=== PATIENT | male | born 1965 | race Caucasian/White ===

== ENCOUNTER → 2016-04-01 | Outpatient (CLI) | payer BC ==
[2016-04-01 20:28] LABS: ANION GAP 9 MEQ/L (8-16); BLOOD UREA NITROGEN 14 MG/DL (7-18); CALCIUM LEVEL 9.2 MG/DL (8.5-10.1); CARBON DIOXIDE LEVEL 26 MEQ/L (21-32); CHLORIDE LEVEL 107 MEQ/L (98-107); CREATININE FOR GFR 1.11 MG/DL (0.70-1.30); GLOMERULAR FILTRATION RATE > 60.0 (>56); GLUCOSE, FASTING 159 MG/DL (70-105); POTASSIUM SERUM 4.3 MEQ/L (3.5-5.1); SODIUM LEVEL 142 MEQ/L (136-145)
== END ==
LOC: M WUC 16:37
PROVIDERS: ATTEND Physician Assistant Medical
DX: E11.9 Type 2 diabetes mellitus without complications (principal)

== ENCOUNTER → 2016-08-17 | Outpatient (CLI) | payer BC ==
[2016-08-17 14:11] LABS: MEAN CORPUSCULAR HEMOGLOBIN 30.7 pg (27.0-33.0); MEAN CORPUSCULAR VOLUME 90.4 fl (80.0-96.0); RED CELL DISTRIBUTION WIDTH 12.7 % (11.5-14.5); WHITE BLOOD COUNT 6.4 K/mm3 (4.0-10.0)
[2016-08-17 14:23] LABS: ALBUMIN 3.7 GM/DL (3.2-5.2); ANION GAP 8 MEQ/L (8-16); BLOOD UREA NITROGEN 14 MG/DL (7-18); CALCIUM LEVEL 8.6 MG/DL (8.5-10.1); CARBON DIOXIDE LEVEL 26 MEQ/L (21-32); CHLORIDE LEVEL 106 MEQ/L (98-107); CREATININE FOR GFR 0.99 MG/DL (0.70-1.30); GLOMERULAR FILTRATION RATE > 60.0 (>56); GLUCOSE, FASTING 153 MG/DL (70-105); PHOSPHORUS LEVEL 3.8 MG/DL (2.5-4.9); SODIUM LEVEL 140 MEQ/L (136-145)
[2016-08-17 14:26] LABS: LITHIUM LEVEL 0.64 MEQ/L (0.60-1.20)
[2016-08-17 14:27] LABS: ALT/SGPT 76 U/L (12-78); ANION GAP 8 MEQ/L (8-16); AST/SGOT 45 U/L (15-37); BLOOD UREA NITROGEN 14 MG/DL (7-18); CALCIUM LEVEL 8.8 MG/DL (8.5-10.1); CARBON DIOXIDE LEVEL 26 MEQ/L (21-32); CHLORIDE LEVEL 107 MEQ/L (98-107); CHOLESTEROL LEVEL 180 MG/DL (<200); CREATININE FOR GFR 0.98 MG/DL (0.70-1.30); GLOMERULAR FILTRATION RATE > 60.0 (>56); GLUCOSE, FASTING 154 MG/DL (70-105); SODIUM LEVEL 141 MEQ/L (136-145); TRIGLYCERIDES LEVEL 315 MG/DL (<150)
== END ==
LOC: M LAB 11:41
PROVIDERS: ATTEND Family Medicine
DX: I10 Essential (primary) hypertension (principal); E66.9 Obesity, unspecified; E03.9 Hypothyroidism, unspecified; F33.9 Major depressive disorder, recurrent, unspecified

== ENCOUNTER → 2016-08-17 | Outpatient (CLI) | payer BC | LOC: M LAB 11:37 | PROVIDERS: ATTEND Nurse Practitioner Psychiatric/Mental Health | DX: Z51.81 Encounter for therapeutic drug level monitoring (principal); Z79.899 Other long term (current) drug therapy ==

== ENCOUNTER → 2016-11-05 | Outpatient (REF) | payer BC | LOC: M LAB REF 12:00 | PROVIDERS: ATTEND Internal Medicine Gastroenterology | DX: R10.33 Periumbilical pain (principal); R13.10 Dysphagia, unspecified; K59.1 Functional diarrhea ==

== ENCOUNTER → 2017-11-08 | Outpatient (CLI) | payer BC ==
[2017-11-08 08:47] LABS: BASO # 0.1 10^3/uL (0.0-0.2); BASO % 1.1 % (0.0-1.0); EOS # 0.4 10^3/uL (0.0-0.50); EOS % 5.6 % (0.0-3.0); HEMATOCRIT 37.4 % (42.0-52.0); HEMOGLOBIN 12.3 g/dl (13.5-17.5); IMMATURE GRANULOCYTE % 0.3 % (0-3.0); LYMPH # 2.3 10^3/uL (1.5-4.5); LYMPH % 34.6 % (24.0-44.0); MEAN CORPUSCULAR HEMOGLOBIN 29.1 pg (27.0-33.0); MEAN CORPUSCULAR HGB CONC 32.9 g/dl (32.0-36.5); MEAN CORPUSCULAR VOLUME 88.6 fl (80.0-96.0); MONO # 0.7 10^3/uL (0.0-0.8); MONO % 10.8 % (0.0-5.0); NEUTROPHILS # 3.2 10^3/uL (1.8-7.7); NEUTROPHILS % 47.6 % (36.0-66.0); PLATELET COUNT, AUTOMATED 162 10^3/uL (150-450); RED BLOOD COUNT 4.22 10^6/uL (4.30-6.10); RED CELL DISTRIBUTION WIDTH 13.8 % (11.5-14.5); WHITE BLOOD COUNT 6.6 10^3/uL (4.0-10.0)
[2017-11-08 08:52] LABS: APPEARANCE, URINE CLEAR (CLEAR); BACTERIA, URINE AUTO NEGATIVE (NEGATIVE); BILIRUBIN, URINE AUTO NEGATIVE (NEGATIVE); BLOOD, URINE BLOOD NEGATIVE (NEGATIVE); COLOR, URINE YELLOW (YELLOW); GLUCOSE, URINE (UA) AUTO 3+ mg/dL (NEGATIVE); KETONE, URINE AUTO NEGATIVE (NEGATIVE); LEUKOCYTE ESTERASE, URINE AUTO NEGATIVE (NEGATIVE); NITRITE, URINE AUTO NEGATIVE (NEGATIVE); PROTEIN, URINE AUTO NEGATIVE (NEGATIVE); RBC, URINE AUTO 3 /HPF (0-3); SPECIFIC GRAVITY URINE AUTO 1.027 (1.002-1.035); SQUAMOUS EPITHELIAL CELL UR AU 0 /HPF (0-6); UROBILINOGEN, URINE AUTO 0.2 mg/dL (0.0-2.0); WBC, URINE AUTO 2 /HPF (0-3)
[2017-11-08 09:13] LABS: ESTIMATED AVERAGE GLUCOSE 174 MG/DL (60-110); HEMOGLOBIN A1c 7.7 %
[2017-11-08 09:25] LABS: ALBUMIN 3.8 GM/DL (3.2-5.2); ALKALINE PHOSPHATASE 53 U/L (45-117); ALT/SGPT 55 U/L (12-78); ANION GAP 10 MEQ/L (8-16); AST/SGOT 37 U/L (7-37); BILIRUBIN,TOTAL 1.4 MG/DL (0.2-1.0); BLOOD UREA NITROGEN 13 MG/DL (7-18); CALCIUM LEVEL 9.1 MG/DL (8.5-10.1); CARBON DIOXIDE LEVEL 23 MEQ/L (21-32); CHLORIDE LEVEL 106 MEQ/L (98-107); CHOLESTEROL LEVEL 161 MG/DL (<200); CHOLESTEROL RISK RATIO 4.025 (<5); CPK CREATINE PHOSPHOKINASE 78 U/L (39-308); CREATININE FOR GFR 1.11 MG/DL (0.70-1.30); GLOMERULAR FILTRATION RATE > 60.0 (>56); GLUCOSE, FASTING 118 MG/DL (70-100); HDL CHOLESTEROL 40 MG/DL (>40); LDL CHOLESTEROL 91 MG/DL (<100); NON-HDL-C 121 MG/DL; SODIUM LEVEL 139 MEQ/L (136-145); TOTAL PROTEIN 7.3 GM/DL (6.4-8.2); TRIGLYCERIDES LEVEL 150 MG/DL (<150)
[2017-11-08 10:14] LABS: MALB URINE SIEMENS 10.8 MG/L
[2017-11-08 12:18] LABS: ALBUMIN/GLOBULIN RATIO 0.92 (1.00-1.93)
[2017-11-08 20:33] LABS: MAU/CREAT RATIO 5.7 MCG/MG (0.0-30.0)
== END ==
LOC: M LAB 07:54
DX: E78.5 Hyperlipidemia, unspecified (principal); I10 Essential (primary) hypertension; E11.9 Type 2 diabetes mellitus without complications
CPT/HCPCS: 82550

== ENCOUNTER → 2018-01-28 | Outpatient (CLI) | payer BC, OTHER, SELFPAY ==
[2018-01-28 17:38] LABS: ALBUMIN 3.4 GM/DL (3.2-5.2); BILIRUBIN,DIRECT 0.2 MG/DL (0.0-0.2); BILIRUBIN,TOTAL 0.7 MG/DL (0.2-1.0); TOTAL PROTEIN 7.2 GM/DL (6.4-8.2)
== END ==
LOC: M WUC 15:49
PROVIDERS: ATTEND Family Medicine
DX: E78.5 Hyperlipidemia, unspecified (principal)

== ENCOUNTER 2018-04-29 11:42 | Emergency (ER) | payer OTHER ==
[~2018-04-29] VITALS: Ht 172.7 cm; Wt 100.0 kg
[2018-04-29] MEDS ORDERED: MORPHINE 4 MG/ML 1ML VIAL/SYRINGE (J2270) IV PRN (12:00)
[2018-04-29] MEDS ORDERED: NS 500 ML IV ONE (12:00)
[2018-04-29] MEDS ORDERED: ONDANSETRON 4MG/2ML VIAL (J2405) IV ONE (12:00)
[2018-04-29 12:23] LABS: BASO % 0.4 % (0.0-1.0); EOS # 0.4 10^3/uL (0.0-0.50); EOS % 3.7 % (0.0-3.0); HEMATOCRIT 39.1 % (42.0-52.0); HEMOGLOBIN 12.6 g/dl (13.5-17.5); LYMPH # 2.7 10^3/uL (1.5-4.5); MEAN CORPUSCULAR HEMOGLOBIN 28.4 pg (27.0-33.0); MEAN CORPUSCULAR HGB CONC 32.2 g/dl (32.0-36.5); MEAN CORPUSCULAR VOLUME 88.1 fl (80.0-96.0); MONO # 0.8 10^3/uL (0.0-0.8); MONO % 8.5 % (0.0-5.0); NEUTROPHILS # 5.4 10^3/uL (1.8-7.7); NEUTROPHILS % 58.2 % (36.0-66.0); PLATELET COUNT, AUTOMATED 171 10^3/uL (150-450); RED BLOOD COUNT 4.44 10^6/uL (4.30-6.10); WHITE BLOOD COUNT 9.3 10^3/uL (4.0-10.0)
[2018-04-29 12:54] LABS: ALBUMIN 3.6 GM/DL (3.2-5.2); ALT/SGPT 36 U/L (12-78); BILIRUBIN,DIRECT 0.3 MG/DL (0.0-0.2); BILIRUBIN,TOTAL 1.7 MG/DL (0.2-1.0); BLOOD UREA NITROGEN 13 MG/DL (7-18); CALCIUM LEVEL 8.8 MG/DL (8.5-10.1); CARBON DIOXIDE LEVEL 24 MEQ/L (21-32); CHLORIDE LEVEL 106 MEQ/L (98-107); CREATININE FOR GFR 1.05 MG/DL (0.70-1.30); GLOMERULAR FILTRATION RATE > 60.0 (>56); GLUCOSE, FASTING 190 MG/DL (70-100); LIPASE 298 U/L (73-393); POTASSIUM SERUM 4.1 MEQ/L (3.5-5.1); SODIUM LEVEL 138 MEQ/L (136-145); TOTAL PROTEIN 7.4 GM/DL (6.4-8.2)
[2018-04-29] MEDS ORDERED: ISOVUE-370 76% 100ML VIAL (Q9967) As Ordered ONE (12:56)
--- NOTE | 2018-04-29 13:30 | REP ---
Clinical: Right lower quadrant pain. Technique: Axial contrast enhanced images from the lung bases to the pubic symphysis using 100 ml Isovue 370 intravenous contrast material with coronal and sagittal re-formations. Findings: Lung bases are clear. Visualized heart and pericardium normal. Fatty infiltration to the liver suggested. Spleen, pancreas, bilateral adrenal glands and kidneys are normal. The patient is status post cholecystectomy. The enteric system is without obstruction or acute inflammatory process. The appendix is identified in the right lower quadrant and while the proximal appendix measures up to 10 mm diameter, no further significant changes are appreciated to suggest acute appendicitis. Pelvis demonstrates normal bladder and age appropriate prostate/seminal vesicles. No ascites. No free air. No adenopathy. Abdominal aorta and vasculature without aneurysm or dissection. Musculoskeletal structures are intact. Impression: 1. Mild prominence to the proximal appendix measuring [address] further definite CT evidence for acute appendicitis. However, close clinical observation may be warranted. 2. No further acute abdominopelvic pathology appreciated. Electronically Signed by Barry Sotomayor MD 04/29/2018 01:22 P
[2018-04-29] MEDS ORDERED: ONDA4TAB6 PO (13:55)
[2018-04-29] MEDS ORDERED: FLAG500T PO (13:55)
[2018-04-29] MEDS ORDERED: CIPR-249 PO (13:55)
[2018-04-29] MEDS ORDERED: metroNIDAZOLE (FLAGYL) 500 MG TAB PO ONE (14:00)
[2018-04-29] MEDS ORDERED: CIPROFLOXACIN 500 MG TAB PO ONE (14:00)
[2018-04-29 14:42] VITALS: BP 115/59
== END 2018-04-29 14:46 | disposition home or self-care (01) ==
LOC: M ED 11:42
DX: R10.11 Right upper quadrant pain (principal); R11.0 Nausea; E11.9 Type 2 diabetes mellitus without complications; I10 Essential (primary) hypertension; Z88.0 Allergy status to penicillin; Z88.2 Allergy status to sulfonamides
CPT/HCPCS: 74177; 80048; 80076; 83690; 85025; 96374; 96375; 99284; J2270; J2405; Q9967

== ENCOUNTER → 2018-10-10 | Outpatient (CLI) | payer OTHER ==
[~2018-10-10] MED LIST: CIPR-249 PO; FLAG500T PO; ONDA4TAB6 PO
[2018-10-10 20:54] LABS: BASO # 0.1 10^3/uL (0.0-0.2); BASO % 0.8 % (0.0-1.0); EOS # 0.3 10^3/uL (0.0-0.50); EOS % 3.4 % (0.0-3.0); HEMATOCRIT 40.6 % (42.0-52.0); HEMOGLOBIN 13.2 g/dl (13.5-17.5); LYMPH # 3.1 10^3/uL (1.5-4.5); LYMPH % 37.4 % (24.0-44.0); MEAN CORPUSCULAR HEMOGLOBIN 28.9 pg (27.0-33.0); MEAN CORPUSCULAR HGB CONC 32.5 g/dl (32.0-36.5); MONO % 11.8 % (0.0-5.0); NEUTROPHILS # 3.8 10^3/uL (1.8-7.7); NEUTROPHILS % 46.4 % (36.0-66.0); PLATELET COUNT, AUTOMATED 205 10^3/uL (150-450); RED BLOOD COUNT 4.56 10^6/uL (4.30-6.10); WHITE BLOOD COUNT 8.2 10^3/uL (4.0-10.0)
[2018-10-10 20:56] LABS: BLOOD UREA NITROGEN 15 MG/DL (7-18); C REACTIVE PROTEIN QUANTITATIV < 0.30 MG/DL (0.00-0.30); CALCIUM LEVEL 8.9 MG/DL (8.5-10.1); CARBON DIOXIDE LEVEL 24 MEQ/L (21-32); CHLORIDE LEVEL 110 MEQ/L (98-107); CREATININE FOR GFR 1.06 MG/DL (0.70-1.30); GLOMERULAR FILTRATION RATE > 60.0 (>56); GLUCOSE, FASTING 128 MG/DL (70-100); SODIUM LEVEL 143 MEQ/L (136-145); URIC ACID 4.4 MG/DL (3.5-7.2)
[2018-10-10 21:22] LABS: ERYTHROCYTE SEDIMENTATION RATE 7 mm/hr (0-20)
--- NOTE | 2018-10-11 09:49 | REP ---
RIGHT WRIST COMPLETE: 10/10/2018. Clinical history: Wrist pain for 1 day, no recent trauma. Findings: Four views are provided. Narrowing of the radiocarpal articulation with near [id number] appearance of the lunate on the radius. There is soft tissue calcific density on oblique view near the radial styloid and distal pole of the scaphoid. This may be a calcification or bursal recess. There is abnormal widening of the scapholunate joint in a lucency in the lunate representing a bone cyst. Bone is somewhat sclerotic around it. I do not see a fracture of the scaphoid or capitate. The multangular bones show some degenerative changes. There is no visible fracture of the triquetrum or hamate. Degenerative changes at the CMC joints are mild, greatest at the first CMC joint. No metacarpal fracture. There is some soft tissue swelling about the distal forearm and wrist. Impression: 1. There is widening of the scapholunate joint suggesting scapholunate ligament injury, this could be chronic or acute. Mild soft-tissue swelling but no visible acute fracture. 2. Soft tissue calcification adjacent to distal radial styloid and adjacent distal pole of the scaphoid could be calcification in a bursal recess. 3. No acute fracture evident on these images. I recommend orthopedic referral. The scapholunate joint widening warrants further investigation. Electronically Signed by Kirill Fleming MD 10/11/2018 11:14 A
== END ==
LOC: M WUC 17:18
PROVIDERS: ATTEND Physician Assistant
DX: M25.431 Effusion, right wrist (principal); M25.531 Pain in right wrist

== ENCOUNTER → 2019-04-21 | Outpatient (CLI) | payer OTHER ==
[2019-04-21 19:20] LABS: ALT/SGPT 56 U/L (12-78); BILIRUBIN,TOTAL 1.3 MG/DL (0.2-1.0); BLOOD UREA NITROGEN 17 MG/DL (7-18); CALCIUM LEVEL 9.1 MG/DL (8.5-10.1); CARBON DIOXIDE LEVEL 28 MEQ/L (21-32); CHLORIDE LEVEL 109 MEQ/L (98-107); CHOLESTEROL LEVEL 196 MG/DL (<200); CREATININE FOR GFR 1.03 MG/DL (0.70-1.30); GLOMERULAR FILTRATION RATE > 60.0 (>56); GLUCOSE, FASTING 122 MG/DL (70-100); HDL CHOLESTEROL 35 MG/DL (>40); LDL CHOLESTEROL 91 MG/DL (<100); NON-HDL-C 161 MG/DL; POTASSIUM SERUM 4.4 MEQ/L (3.5-5.1); SODIUM LEVEL 142 MEQ/L (136-145); TOTAL PROTEIN 7.8 GM/DL (6.4-8.2); TRIGLYCERIDES LEVEL 348 MG/DL (<150)
[2019-04-21 19:23] LABS: CREATININE, URINE 88.6 MG/DL; MALB URINE SIEMENS 8.3 MG/L; MAU/CREAT RATIO 9.3 MCG/MG (0.0-30.0)
== END ==
LOC: M WUC 17:04
PROVIDERS: ATTEND Nurse Practitioner Family
DX: E11.9 Type 2 diabetes mellitus without complications (principal); E06.3 Autoimmune thyroiditis; E78.00 Pure hypercholesterolemia, unspecified

== ENCOUNTER → 2019-11-14 | Outpatient (CLI) | payer OTHER ==
[2019-11-14 08:58] LABS: BLOOD UREA NITROGEN 12 MG/DL (7-18); CALCIUM LEVEL 8.8 MG/DL (8.5-10.1); CARBON DIOXIDE LEVEL 23 MEQ/L (21-32); CHLORIDE LEVEL 108 MEQ/L (98-107); CREATININE FOR GFR 1.04 MG/DL (0.70-1.30); GLOMERULAR FILTRATION RATE > 60.0 (>56); GLUCOSE, FASTING 171 MG/DL (70-100); POTASSIUM SERUM 4.2 MEQ/L (3.5-5.1); SODIUM LEVEL 140 MEQ/L (136-145)
== END ==
LOC: M LAB 07:51
PROVIDERS: ATTEND Nurse Practitioner Family
DX: E11.9 Type 2 diabetes mellitus without complications (principal)

== ENCOUNTER → 2020-03-29 | Outpatient (CLI) | payer OTHER | LOC: M LABSMTC 10:53 | PROVIDERS: ATTEND Pediatrics | DX: Z20.822 Contact with and (suspected) exposure to COVID-19 (principal) ==

== ENCOUNTER → 2020-05-09 | Outpatient (CLI) | payer OTHER ==
[2020-05-09 14:59] LABS: ALBUMIN 3.5 GM/DL (3.2-5.2); ALT/SGPT 32 U/L (12-78); BILIRUBIN,TOTAL 0.8 MG/DL (0.2-1.0); BLOOD UREA NITROGEN 15 MG/DL (7-18); CALCIUM LEVEL 8.9 MG/DL (8.5-10.1); CARBON DIOXIDE LEVEL 26 MEQ/L (21-32); CHLORIDE LEVEL 110 MEQ/L (98-107); CHOLESTEROL LEVEL 183 MG/DL (<200); CHOLESTEROL RISK RATIO 4.255 (<5); CREATININE FOR GFR 0.86 MG/DL (0.70-1.30); FREE T4 1.03 NG/DL (0.76-1.46); GLOMERULAR FILTRATION RATE > 60.0 (>56); GLUCOSE, FASTING 118 MG/DL (70-100); HDL CHOLESTEROL 43 MG/DL (>40); LDL CHOLESTEROL 114 MG/DL (<100); NON-HDL-C 140 MG/DL; POTASSIUM SERUM 4.7 MEQ/L (3.5-5.1); SODIUM LEVEL 141 MEQ/L (136-145); THYROID STIMULATING HORMONE 0.548 uIU/ML (0.358-3.740); TOTAL PROTEIN 6.5 GM/DL (6.4-8.2); TRIGLYCERIDES LEVEL 129 MG/DL (<150)
== END ==
LOC: M WUC 11:16
PROVIDERS: ATTEND Nurse Practitioner Family
DX: E78.00 Pure hypercholesterolemia, unspecified (principal); E06.3 Autoimmune thyroiditis

== ENCOUNTER → 2020-07-10 | Outpatient (REF) | LOC: M LABSMTC 13:55 | PROVIDERS: ATTEND Pediatrics | DX: Z20.822 Contact with and (suspected) exposure to COVID-19 (principal) ==

== ENCOUNTER → 2020-08-27 | Outpatient (CLI) | payer OTHER ==
[2020-08-27 09:17] LABS: HEMOGLOBIN 11.3 g/dl (13.5-17.5); MEAN CORPUSCULAR HEMOGLOBIN 25.9 pg (27.0-33.0); MEAN CORPUSCULAR HGB CONC 30.5 g/dl (32.0-36.5); MEAN CORPUSCULAR VOLUME 84.7 fl (80.0-96.0); PLATELET COUNT, AUTOMATED 186 10^3/uL (150-450); RED BLOOD COUNT 4.37 10^6/uL (4.30-6.10); WHITE BLOOD COUNT 5.9 10^3/uL (4.0-10.0)
[2020-08-27 09:43] LABS: FERRITIN 18 NG/ML (26-388); IRON (FE) 243 UG/DL (65-175); PERCENT SATURATION 48.9 % (19.7-50.0); TOTAL IRON BINDING CAPACITY 497 UG/DL (250-450)
[2020-08-27 09:48] LABS: ATYPICAL LYMPH 3 % (0-5); EOSINOPHILS 7 % (0-3); LYMPHOCYTES 44 % (16-44); MONOCYTES 4 % (0-5); NEUTROPHILS 42 % (28-66)
[2020-08-27 09:49] LABS: PLATELET ESTIMATE NORMAL (NORMAL)
[2020-08-27 09:50] LABS: VITAMIN B12 LEVEL > 2000 PG/ML
[2020-08-27 09:51] LABS: FOLATE 14.6 NG/ML
== END ==
LOC: M LAB 07:59
PROVIDERS: ATTEND Internal Medicine Gastroenterology
DX: R53.83 Other fatigue (principal); D64.9 Anemia, unspecified; K22.70 Barrett's esophagus without dysplasia; K59.1 Functional diarrhea; E56.9 Vitamin deficiency, unspecified

== ENCOUNTER 2020-11-03 13:10 | Emergency (ER) | payer OTHER ==
[~2020-11-03] VITALS: Ht 172.7 cm; Wt 92.9 kg
--- NOTE | 2020-11-03 13:50 | REP ---
INDICATION: trauma. COMPARISON: None. TECHNIQUE: Contiguous 5 mm thick axial projection images were obtained through the head. 2D coronal reconstructions were performed. FINDINGS: There is no evidence of acute intracranial hemorrhage or infarction. There are no abnormal intracranial masses or mass effects. 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 The skull base and calvarium are normal. There is a mucous retention cyst or polyp in the left maxillary sinus measuring 1.8 cm in diameter. There is nasal septal deviation to the left. The visualized intraorbital and extracranial contents are normal. IMPRESSION: 1. 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 2. There is no evidence of acute intracranial pathology. 3. There is a mucous retention cyst or polyp in the left maxillary sinus. <Electronically signed by Tayo Owens > 11/03/20 [id number]
--- NOTE | 2020-11-03 13:59 | REP ---
INDICATION: trauma. COMPARISON: None. TECHNIQUE: Contiguous 2 mm thick axial projection images were obtained of the cervical spine. 2D sagittal and coronal reconstructions were performed. FINDINGS: There is loss of the normal cervical lordosis and torticollis to the left. There is no evidence of fracture. There is no abnormal soft tissue swelling. There is mild arthritis of the atlantodental joint with a large subchondral cyst in the dens. There is degenerative disc disease, C4-5, C5-6 and C6-7 with narrowing of the intervertebral disc spaces and marginal osteophytes. There is a partially calcified disc protrusion C5-6. There is no significant facet arthropathy. There is no spondylolisthesis. There is a 17 mm in thickness mucous retention cyst or polyp in the left maxillary sinus. There is minimal basilar mucosal thickening of the right maxillary sinus. There is nasal septal deviation to the left. There is a 10 mm in diameter low-density nodule from the lower pole of the left thyroid lobe. The lung apices are clear. IMPRESSION: 1. No evidence of acute bony injury. 2. Degenerative disc disease with cervical spasm. 3. Other findings as noted. <Electronically signed by Tayo Owens > 11/03/20 [id number]
--- NOTE | 2020-11-03 14:36 | REP ---
INDICATION: trauma. COMPARISON: None. TECHNIQUE: Five views of the lumbar spine were performed. FINDINGS: There is degenerative disc disease, L4-5 and L5-S1 with narrowing of the disc spaces and marginal osteophytes. There are no compression fractures. There is no spondylolisthesis. The SI joints are normal. The perivertebral soft tissues are normal. IMPRESSION: 1. Degenerative disc disease L4-5 and L5-S1. 2. No evidence of acute injury. <Electronically signed by Tayo Owens > 11/03/20 [id number]
--- NOTE | 2020-11-03 14:37 | REP ---
INDICATION: trauma. COMPARISON: None. TECHNIQUE: Three-view lumbar spine series was performed. FINDINGS: There are no compression fractures. The intervertebral disc spaces of the thoracic spine are preserved. There is no evidence of scoliosis. The perivertebral soft tissues are unremarkable. IMPRESSION: Normal thoracic spine. <Electronically signed by Tayo Owens > 11/03/20 [id number]
[2020-11-03 14:57] VITALS: BP 170/76
== END 2020-11-03 15:00 | disposition home or self-care (01) ==
LOC: M ED 13:10
DX: S06.0X0A Concussion without loss of consciousness, initial encounter (principal); S16.1XXA Strain of muscle, fascia and tendon at neck level, initial encounter; S20.229A Contusion of unspecified back wall of thorax, initial encounter; W18.39XA Other fall on same level, initial encounter; Y92.018 Other place in single-family (private) house as the place of occurrence of the external cause; E11.9 Type 2 diabetes mellitus without complications; I10 Essential (primary) hypertension; E78.9 Disorder of lipoprotein metabolism, unspecified; F33.9 Major depressive disorder, recurrent, unspecified; F41.9 Anxiety disorder, unspecified; Z88.0 Allergy status to penicillin; Z88.1 Allergy status to other antibiotic agents; Z88.2 Allergy status to sulfonamides

== ENCOUNTER → 2020-12-29 | Outpatient (REF) | payer OTHER ==
[2020-12-29 19:43] LABS: MALB URINE SIEMENS 10.6 MG/L; MAU/CREAT RATIO 12.4 MCG/MG (0.0-30.0)
== END ==
LOC: M LAB REF 18:02
PROVIDERS: ATTEND Nurse Practitioner Family
DX: E11.9 Type 2 diabetes mellitus without complications (principal)

== ENCOUNTER → 2021-01-06 | Outpatient (REF) | LOC: M EMP 15:31 | PROVIDERS: ATTEND Family Medicine | DX: Z53.20 Procedure and treatment not carried out because of patient's decision for unspecified reasons (principal) ==

== ENCOUNTER 2021-01-26 07:05 | Outpatient (RCR) | END 2021-01-26 15:00 | disposition home or self-care (01) | LOC: M EMP 07:05 | PROVIDERS: ATTEND Pediatrics | DX: Z11.52 Encounter for screening for COVID-19 (principal) ==

== ENCOUNTER → 2021-02-26 | Outpatient (CLI) | payer OTHER ==
[2021-02-26 08:29] LABS: HEMATOCRIT 33.8 % (42.0-52.0); HEMOGLOBIN 11.4 g/dl (13.5-17.5); MEAN CORPUSCULAR HEMOGLOBIN 30.1 pg (27.0-33.0); MEAN CORPUSCULAR HGB CONC 33.7 g/dl (32.0-36.5); MEAN CORPUSCULAR VOLUME 89.2 fl (80.0-96.0); PLATELET COUNT, AUTOMATED 166 10^3/uL (150-450); RED BLOOD COUNT 3.79 10^6/uL (4.30-6.10)
[2021-02-26 09:00] LABS: ALBUMIN 3.5 GM/DL (3.2-5.2); ALT/SGPT 63 U/L (12-78); BLOOD UREA NITROGEN 16 MG/DL (7-18); CALCIUM LEVEL 8.6 MG/DL (8.5-10.1); CARBON DIOXIDE LEVEL 24 MEQ/L (21-32); CHLORIDE LEVEL 112 MEQ/L (98-107); CREATININE FOR GFR 0.97 MG/DL (0.70-1.30); GLOMERULAR FILTRATION RATE > 60.0 (>56); GLUCOSE, FASTING 239 MG/DL (70-100); IRON (FE) 58 UG/DL (65-175); PERCENT SATURATION 12.5 % (19.7-50.0); POTASSIUM SERUM 4.1 MEQ/L (3.5-5.1); SODIUM LEVEL 142 MEQ/L (136-145); TOTAL IRON BINDING CAPACITY 463 UG/DL (250-450); TOTAL PROTEIN 6.9 GM/DL (6.4-8.2)
--- NOTE | 2021-02-26 09:10 | REP ---
INDICATION: ABD PAIN COMPARISON: None. TECHNIQUE: Real time jain scale ultrasound examination using curved array transducer. FINDINGS: Liver is hyperechoic suggesting hepatocellular disease/hepatosteatosis. No focal hepatic lesions are identified. The main portal vein is mildly dilated at 17 mm which is nonspecific although raise the possibility for portal hypertension. Pancreas is incompletely evaluated due to interposed bowel gas. The gallbladder is surgically absent. Mild compensatory biliary ductal dilatation with common bile duct measuring 8.4 mm diameter. Right kidney is normal in reniform shape without hydronephrosis and measures 11.4 x 6.8 x 5.9 cm. No ascites in the visualized right upper quadrant. IMPRESSION: 1. Hepatosteatosis and/or hepatocellular disease with mildly dilated main portal vein raising the possibility of portal hypertension. <Electronically signed by Barry Sotomayor > 02/26/21 [id number]
[2021-02-26 15:16] LABS: TOTAL 25(OH) VITAMIN D 26.9 NG/ML (30.0-100.0)
[2021-02-26 15:35] LABS: VITAMIN B12 LEVEL 1411 PG/ML (247-911)
== END ==
LOC: M RAD 07:42
PROVIDERS: ATTEND Internal Medicine Gastroenterology
DX: K22.70 Barrett's esophagus without dysplasia (principal); K44.9 Diaphragmatic hernia without obstruction or gangrene; D64.9 Anemia, unspecified; K21.9 Gastro-esophageal reflux disease without esophagitis; K59.1 Functional diarrhea; I85.00 Esophageal varices without bleeding; K76.9 Liver disease, unspecified

== ENCOUNTER → 2021-03-02 | Outpatient (REF) | payer OTHER | LOC: M LAB REF 12:00 | PROVIDERS: ATTEND Internal Medicine Gastroenterology | DX: K22.70 Barrett's esophagus without dysplasia (principal); K44.9 Diaphragmatic hernia without obstruction or gangrene; K21.9 Gastro-esophageal reflux disease without esophagitis; I85.00 Esophageal varices without bleeding; D64.9 Anemia, unspecified; K59.1 Functional diarrhea ==

== ENCOUNTER → 2021-05-29 | Outpatient (CLI) | payer OTHER ==
[2021-05-29 16:17] LABS: INR 1.06; PROTHROMBIN TIME 14.2 SECONDS (12.7-14.5)
[2021-05-29 16:40] LABS: ALBUMIN 3.9 GM/DL (3.2-5.2); ALT/SGPT 48 U/L (12-78); BILIRUBIN,DIRECT 0.3 MG/DL (0.0-0.2); BILIRUBIN,TOTAL 1.4 MG/DL (0.2-1.0); FERRITIN 9 NG/ML (26-388); IRON (FE) 88 UG/DL (65-175); PERCENT SATURATION 17.1 % (19.7-50.0); TOTAL IRON BINDING CAPACITY 516 UG/DL (250-450); TOTAL PROTEIN 7.4 GM/DL (6.4-8.2)
[2021-05-29 16:52] LABS: HEPATITIS B SURFACE ANTIGEN NEGATIVE (NEGATIVE)
[2021-05-29 17:20] LABS: HEPATITIS C VIRUS ABY INDEX 0.2 INDEX (<0.8)
[2021-05-29 17:21] LABS: HEPATITIS B CORE ANTIBODY IGM NEGATIVE (NEGATIVE)
[2021-06-01 19:11] LABS: ALPHA 1 ANTITRYPSIN 125 mg/dL (101-187); ANTINUCLEAR ANTIBODIES DIRECT Negative (Negative); ENDOMYSIAL ABY IgA Negative (Negative); HCG SERUM TUMOR MARKER QUANT < 1 mIU/mL (0-3); HEPATITIS A IgG TOTAL Negative (Negative); LIVER-KIDNEY MICROSOMAL ABY <20.1 Units (0.0-20.0); TISSUE TRANSGLUTAMINASE IgA <2 U/mL (0-3)
== END ==
LOC: M LAB 14:27
PROVIDERS: ATTEND Internal Medicine Gastroenterology
DX: R10.84 Generalized abdominal pain (principal); K76.0 Fatty (change of) liver, not elsewhere classified; K76.6 Portal hypertension

== ENCOUNTER → 2021-05-29 | Outpatient (CLI) | payer OTHER ==
[2021-05-29 16:46] LABS: ALT/SGPT 49 U/L (12-78); BILIRUBIN,TOTAL 1.4 MG/DL (0.2-1.0); BLOOD UREA NITROGEN 10 MG/DL (7-18); CARBON DIOXIDE LEVEL 26 MEQ/L (21-32); CHLORIDE LEVEL 110 MEQ/L (98-107); CHOLESTEROL LEVEL 195 MG/DL (<200); CHOLESTEROL RISK RATIO 4.431 (<5); CREATININE FOR GFR 0.82 MG/DL (0.70-1.30); FREE T4 1.03 NG/DL (0.76-1.46); GLOMERULAR FILTRATION RATE > 60.0 (>56); GLUCOSE, FASTING 142 MG/DL (70-100); HDL CHOLESTEROL 44 MG/DL (>40); LDL CHOLESTEROL 125 MG/DL (<100); NON-HDL-C 151 MG/DL; SODIUM LEVEL 141 MEQ/L (136-145); TOTAL PROTEIN 7.4 GM/DL (6.4-8.2); TRIGLYCERIDES LEVEL 130 MG/DL (<150)
== END ==
LOC: M LAB 14:22
PROVIDERS: ATTEND Nurse Practitioner Family
DX: E06.3 Autoimmune thyroiditis (principal); E78.00 Pure hypercholesterolemia, unspecified

== ENCOUNTER → 2021-05-29 | Outpatient (CLI) | payer OTHER ==
[2021-05-29 16:41] LABS: ALBUMIN 3.9 GM/DL (3.2-5.2); BLOOD UREA NITROGEN 9 MG/DL (7-18); CALCIUM LEVEL 9.2 MG/DL (8.5-10.1); CARBON DIOXIDE LEVEL 28 MEQ/L (21-32); CHLORIDE LEVEL 112 MEQ/L (98-107); CREATININE FOR GFR 0.87 MG/DL (0.70-1.30); FREE THYROXINE INDEX 3.1 % (1.4-3.8); GLOMERULAR FILTRATION RATE > 60.0 (>56); GLUCOSE, FASTING 151 MG/DL (70-100); PHOSPHORUS LEVEL 3.7 MG/DL (2.5-4.9); POTASSIUM SERUM 4.1 MEQ/L (3.5-5.1); SODIUM LEVEL 144 MEQ/L (136-145); T UPTAKE 31 % (33-40); THYROXINE (T4) 9.9 UG/DL (4.5-12.0)
== END ==
LOC: M LAB 14:20
PROVIDERS: ATTEND Nurse Practitioner Psychiatric/Mental Health
DX: F31.9 Bipolar disorder, unspecified (principal); F41.1 Generalized anxiety disorder

== ENCOUNTER → 2021-05-29 | Outpatient (CLI) | payer OTHER ==
[2021-05-29 16:41] LABS: FREE THYROXINE INDEX 3.2 % (1.4-3.8); RHEUMATOID FACTOR QUANT < 10.0 IU/ML (<15.0); T UPTAKE 33 % (33-40); THYROXINE (T4) 9.6 UG/DL (4.5-12.0); TOTAL PROTEIN 7.2 GM/DL (6.4-8.2)
[2021-05-29 16:42] LABS: VITAMIN B12 LEVEL 1334 PG/ML
[2021-05-29 16:43] LABS: FOLATE 20.2 NG/ML
[2021-05-29 17:42] LABS: HEMOGLOBIN A1c 8.1 %
== END ==
LOC: M LAB 14:25
PROVIDERS: ATTEND Psychiatry & Neurology Neurology
DX: E11.9 Type 2 diabetes mellitus without complications (principal); Z79.899 Other long term (current) drug therapy

== ENCOUNTER 2021-10-29 19:08 | Emergency (ER) | payer OTHER ==
[~2021-10-29] VITALS: Ht 172.7 cm; Wt 95.5 kg
[2021-10-29 20:16] LABS: HEMATOCRIT 36.5 % (42.0-52.0); HEMOGLOBIN 12.7 g/dl (13.5-17.5); MEAN CORPUSCULAR HEMOGLOBIN 32.1 pg (27.0-33.0); MEAN CORPUSCULAR HGB CONC 34.8 g/dl (32.0-36.5); MEAN CORPUSCULAR VOLUME 92.2 fl (80.0-96.0); PLATELET COUNT, AUTOMATED 179 10^3/uL (150-450); RED BLOOD COUNT 3.96 10^6/uL (4.30-6.10); WHITE BLOOD COUNT 5.7 10^3/uL (4.0-10.0)
[2021-10-29 20:26] LABS: AMPHETAMINES LEVEL URINE NEGATIVE (NEGATIVE); BARBITURATES URINE NEGATIVE (NEGATIVE); BENZODIAZEPINES URINE NEGATIVE (NEGATIVE); CANNABINOIDS URINE NEGATIVE (NEGATIVE); COCAINE METABOLITE URINE NEGATIVE (NEGATIVE); METHADONE URINE NEGATIVE (NEGATIVE); OPIATES URINE NEGATIVE (NEGATIVE); PHENCYCLIDINE URINE NEGATIVE (NEGATIVE)
[2021-10-29 20:48] LABS: RSV AMPLIFICATION NEGATIVE (NEGATIVE)
[2021-10-29 20:53] LABS: ACETAMINOPHEN LEVEL < 2.0 UG/ML (10.0-30.0); ALBUMIN 3.6 GM/DL (3.2-5.2); ALT/SGPT 45 U/L (12-78); BILIRUBIN,DIRECT 0.3 MG/DL (0.0-0.2); BILIRUBIN,TOTAL 1.3 MG/DL (0.2-1.0); BLOOD UREA NITROGEN 10 MG/DL (7-18); CALCIUM LEVEL 9.7 MG/DL (8.5-10.1); CARBON DIOXIDE LEVEL 25 MEQ/L (21-32); CHLORIDE LEVEL 110 MEQ/L (98-107); CREATININE FOR GFR 0.95 MG/DL (0.70-1.30); ETHYL ALCOHOL (ETHANOL) 0.004 % (0.000-0.010); GLOMERULAR FILTRATION RATE > 60.0 (>56); GLUCOSE, FASTING 118 MG/DL (70-100); POTASSIUM SERUM 3.9 MEQ/L (3.5-5.1); SALICYLATE LEVEL < 1.7 MG/DL (5.0-30.0); SODIUM LEVEL 142 MEQ/L (136-145); TOTAL PROTEIN 7.1 GM/DL (6.4-8.2)
[2021-10-29] MEDS ORDERED: METF-838 PO (21:39)
[2021-10-29] MEDS ORDERED: ALOG25TA PO (21:39)
[2021-10-29] MEDS ORDERED: ARIP1TAB6 PO (21:39)
[2021-10-29] MEDS ORDERED: REPA1TAB6 PO (21:41)
[2021-10-29] MEDS ORDERED: LITH300C PO (21:56)
[2021-10-29] MEDS ORDERED: NALT50TA4 PO (21:56)
[2021-10-29] MEDS ORDERED: KP F1200 PO (21:56)
[2021-10-29] MEDS ORDERED: BUSP10TA PO (21:56)
[2021-10-29] MEDS ORDERED: FLUO20CA22 PO (21:56)
[2021-10-29] MEDS ORDERED: OMEP40CA4 PO (21:56)
[2021-10-29] MEDS ORDERED: LEVO50TA5 PO (21:56)
[2021-10-29 22:20] LABS: LITHIUM LEVEL 0.82 MEQ/L (0.60-1.20)
[2021-10-30] MEDS ORDERED: LITH300T2 PO (00:18)
[2021-10-30] MEDS ORDERED: BUSP10TA PO (00:18)
[2021-10-30] MEDS ORDERED: FLUO-96 PO (00:18)
[2021-10-30] MEDS ORDERED: LITH300C PO (00:18)
[2021-10-30] MEDS ORDERED: SYNT150T PO (00:18)
[2021-10-30] MEDS ORDERED: FISH1000 PO (00:18)
[2021-10-30] MEDS ORDERED: METF-838 PO (00:18)
[2021-10-30] MEDS ORDERED: REPA1TAB6 PO (00:21)
[2021-10-30] MEDS ORDERED: FERR1TAB8 PO (00:21)
[2021-10-30] MEDS ORDERED: MAGN400T2 PO (00:21)
[2021-10-30] MEDS ORDERED: C 50TAB PO (00:21)
[2021-10-30] MEDS ORDERED: LOSA50TA28 PO (00:21)
[2021-10-30] MEDS ORDERED: OMEP40CA5 PO (00:21)
[2021-10-30] MEDS ORDERED: NALT50TA4 PO (00:21)
[2021-10-30] MEDS ORDERED: HOME MED LIST COMPLETE! XX SCH (00:25)
[2021-10-30] MEDS ORDERED: metFORMIN XR 500MG TAB *GLUCOPHAGE XR PO SCH (09:00)
[2021-10-30] MEDS ORDERED: OMEGA-3 1000MG CAPSULE PO SCH (09:00)
[2021-10-30] MEDS ORDERED: ASCORBIC ACID 500 MG TAB PO SCH (09:00)
[2021-10-30] MEDS ORDERED: FERROUS SULFATE 325MG TAB PO SCH (09:00)
[2021-10-30] MEDS ORDERED: busPIRone 10 MG TAB PO ONE (09:00)
[2021-10-30] MEDS ORDERED: busPIRone 10 MG TAB PO SCH (09:00)
[2021-10-30] MEDS ORDERED: MAGNESIUM OXIDE 400MG TAB (MAG-OX) PO ONE (10:00)
[2021-10-30] MEDS ORDERED: metFORMIN (GLUCOPHAGE) 1000MG TABLET PO ONE (10:00)
[2021-10-30] MEDS ORDERED: LOSARTAN 50MG TABLET PO ONE (10:00)
[2021-10-30] MEDS ORDERED: FLUoxetine 20MG CAP PO ONE (10:00)
[2021-10-30] MEDS ORDERED: LEVOTHYROXINE 150MCG TABLET (0.15MG) PO SCH (10:00)
[2021-10-30] MEDS ORDERED: OMEPRAZOLE 20MG CAP PO ONE (10:00)
[2021-10-30 13:05] VITALS: BP 166/77
[2021-10-30 17:28] VITALS: BP 157/91
== END 2021-10-30 17:31 ==
LOC: M ED 19:08
DX: R45.851 Suicidal ideations (principal); E11.9 Type 2 diabetes mellitus without complications; I10 Essential (primary) hypertension; F31.9 Bipolar disorder, unspecified; F32.A Depression, unspecified; F41.9 Anxiety disorder, unspecified; Z88.0 Allergy status to penicillin; Z88.1 Allergy status to other antibiotic agents; Z88.2 Allergy status to sulfonamides; Z95.0 Presence of cardiac pacemaker; Z79.899 Other long term (current) drug therapy; Z79.890 Hormone replacement therapy; Z79.84 Long term (current) use of oral hypoglycemic drugs

== ENCOUNTER → 2022-06-29 | Outpatient (CLI) | payer OTHER ==
[~2022-06-29] MED LIST changes: +ALOG25TA PO; +ARIP1TAB6 PO; +BUSP10TA PO; +C 50TAB PO; +FERR1TAB8 PO; +FISH1000 PO; +FLUO-96 PO; +FLUO20CA22 PO; +KP F1200 PO; +LEVO50TA5 PO; +LITH300C PO; +LITH300T2 PO; +LOSA50TA28 PO; +MAGN400T2 PO; +METF-838 PO; +NALT50TA4 PO; +OMEP40CA4 PO; +OMEP40CA5 PO; +REPA1TAB6 PO; +SYNT150T PO
== END ==
LOC: M WUC 15:11
PROVIDERS: ATTEND Nurse Practitioner Family
DX: S20.212A Contusion of left front wall of thorax, initial encounter (principal); X58.XXXA Exposure to other specified factors, initial encounter; Y92.9 Unspecified place or not applicable; Y93.9 Activity, unspecified; Y99.9 Unspecified external cause status

== ENCOUNTER → 2022-09-02 | Outpatient (CLI) | payer OTHER | LOC: M RAD 08:51 | PROVIDERS: ATTEND Physician Assistant | DX: R19.00 Intra-abdominal and pelvic swelling, mass and lump, unspecified site (principal) ==

== ENCOUNTER → 2023-09-14 | Outpatient (REF) | payer MEDICARE ==
[~2023-09-14] MED LIST changes: +FLUO-365 PO; -FLUO20CA22 PO; +ONDA-282 PO; -ONDA4TAB6 PO
== END ==
LOC: M WUC 19:37
PROVIDERS: ATTEND Nurse Practitioner Family
DX: R30.0 Dysuria (principal)

== ENCOUNTER → 2024-01-23 | Outpatient (CLI) | payer MEDICARE ==
[~2024-01-23] MED LIST changes: +AMLO1TAB24; +JANU100T PO; +OLAN5ZYD; +REXU1TAB2 PO; +ZOLO100T
[2024-01-23 10:57] LABS: BASO % 1.1 % (0.0-1.0); EOS # 0.2 10^3/uL (0.0-0.5); HEMATOCRIT 35.4 % (42.0-52.0); HEMOGLOBIN 11.8 g/dl (13.5-17.5); LYMPH # 1.3 10^3/uL (1.5-5.0); LYMPH % 34.1 % (24.0-44.0); MEAN CORPUSCULAR HEMOGLOBIN 31.6 pg (27.0-33.0); MEAN CORPUSCULAR HGB CONC 33.3 g/dl (32.0-36.5); MEAN CORPUSCULAR VOLUME 94.9 fl (80.0-96.0); MONO # 0.5 10^3/uL (0.0-0.8); MONO % 11.9 % (2.0-8.0); NEUTROPHILS # 1.8 10^3/uL (1.5-8.5); NEUTROPHILS % 48.6 % (36.0-66.0); PLATELET COUNT, AUTOMATED 140 10^3/uL (150-450); RED BLOOD COUNT 3.73 10^6/uL (4.30-6.10); WHITE BLOOD COUNT 3.8 10^3/uL (4.0-10.0)
[2024-01-23 11:06] LABS: ALBUMIN 3.5 G/DL (3.2-5.2); ALKALINE PHOSPHATASE 58 U/L (40-129); ALT/SGPT 25 U/L (7.0-40); AST/SGOT 22 U/L (<34); BILIRUBIN,TOTAL 0.9 MG/DL (0.3-1.2); BLOOD UREA NITROGEN 16 MG/DL (9-23); CALCIUM LEVEL 9.1 MG/DL (8.3-10.6); CARBON DIOXIDE LEVEL 25 MMOL/L (20-31); CHLORIDE LEVEL 108 MMOL/L (98-107); CREATININE FOR GFR 0.68 MG/DL (0.70-1.30); GLOMERULAR FILTRATION RATE > 60.0 (>49); GLUCOSE, FASTING 300 MG/DL (74-106); POTASSIUM SERUM 4.2 MMOL/L (3.5-5.1); SODIUM LEVEL 140 MMOL/L (136-145); TOTAL PROTEIN 6.7 G/DL (5.7-8.2)
== END ==
LOC: M WUC 08:07
PROVIDERS: ATTEND Specialist
DX: D64.9 Anemia, unspecified (principal); D69.6 Thrombocytopenia, unspecified

== ENCOUNTER → 2024-02-15 | Outpatient (CLI) | payer MEDICARE ==
[2024-02-15 13:05] LABS: CREATININE, URINE 33.4 MG/DL; MALB URINE SIEMENS < 3.0 MG/L
[2024-02-15 13:10] LABS: ALBUMIN 3.5 G/DL (3.2-5.2); ALKALINE PHOSPHATASE 66 U/L (40-129); ALT/SGPT 40 U/L (7.0-40); AST/SGOT 31 U/L (<34); BILIRUBIN,TOTAL 0.8 MG/DL (0.3-1.2); BLOOD UREA NITROGEN 15 MG/DL (9-23); CALCIUM LEVEL 9.4 MG/DL (8.3-10.6); CARBON DIOXIDE LEVEL 26 MMOL/L (20-31); CHLORIDE LEVEL 109 MMOL/L (98-107); CHOLESTEROL LEVEL 182 MG/DL (<200); CHOLESTEROL RISK RATIO 3.73 (<5); CREATININE FOR GFR 0.64 MG/DL (0.70-1.30); FREE T4 1.08 NG/DL (0.89-1.76); GLOMERULAR FILTRATION RATE > 60.0 (>49); GLUCOSE, FASTING 179 MG/DL (74-106); HDL CHOLESTEROL 48.7 MG/DL (>40); LDL CHOLESTEROL 104.9 MG/DL (<100); NON-HDL-C 133.3 MG/DL; POTASSIUM SERUM 4.4 MMOL/L (3.5-5.1); SODIUM LEVEL 140 MMOL/L (136-145); THYROID STIMULATING HORMONE 5.479 uIU/ML (0.55-4.78); TOTAL PROTEIN 7.2 G/DL (5.7-8.2); TRIGLYCERIDES LEVEL 142 MG/DL (<150)
== END ==
LOC: M WUC 09:18
PROVIDERS: ATTEND Nurse Practitioner Family
DX: E06.3 Autoimmune thyroiditis (principal); E78.00 Pure hypercholesterolemia, unspecified; E11.9 Type 2 diabetes mellitus without complications

== ENCOUNTER → 2024-05-01 | Outpatient (CLI) | payer MEDICARE ==
[~2024-05-01] MED LIST changes: +LIDOCAINE 1% MDV 20ML VIAL As Ordered ONE
[2024-05-01 12:04] VITALS: TEMP 98.2
[2024-05-01 12:27] LABS: BASO % 0.8 % (0.0-1.0); EOS # 0.1 10^3/uL (0.0-0.5); EOS % 3.8 % (0.0-3.0); HEMATOCRIT 36.1 % (42.0-52.0); HEMOGLOBIN 11.9 g/dl (13.5-17.5); LYMPH # 1.4 10^3/uL (1.5-5.0); LYMPH % 37.4 % (24.0-44.0); MEAN CORPUSCULAR HEMOGLOBIN 30.3 pg (27.0-33.0); MEAN CORPUSCULAR VOLUME 91.9 fl (80.0-96.0); MONO # 0.4 10^3/uL (0.0-0.8); MONO % 11.4 % (2.0-8.0); NEUTROPHILS # 1.7 10^3/uL (1.5-8.5); NEUTROPHILS % 46.3 % (36.0-66.0); PLATELET COUNT, AUTOMATED 154 10^3/uL (150-450); RED BLOOD COUNT 3.93 10^6/uL (4.30-6.10); WHITE BLOOD COUNT 3.7 10^3/uL (4.0-10.0)
[2024-05-01 12:44] VITALS: BP 147/76; O2SAT 96
== END ==
LOC: M IRPRO 11:47
PROVIDERS: ATTEND Internal Medicine Hematology & Oncology
DX: D61.818 Other pancytopenia (principal)

== ENCOUNTER → 2024-11-05 | Outpatient (CLI) | payer MEDICARE, OTHER ==
[~2024-11-05] MED LIST changes: -LIDOCAINE 1% MDV 20ML VIAL As Ordered ONE
[2024-11-05 12:43] LABS: BASO # 0.0 10^3/uL (0.0-0.2); BASO % 0.8 % (0.0-1.0); EOS # 0.1 10^3/uL (0.0-0.5); EOS % 3.0 % (0.0-3.0); LYMPH # 1.1 10^3/uL (1.5-5.0); LYMPH % 27.6 % (24.0-44.0); MONO # 0.4 10^3/uL (0.0-0.8); MONO % 9.4 % (2.0-8.0); NEUTROPHILS # 2.3 10^3/uL (1.5-8.5); NEUTROPHILS % 58.9 % (36.0-66.0); PLATELET COUNT, AUTOMATED 128 10^3/uL (150-450)
[2024-11-05 13:14] LABS: ALT/SGPT 24 U/L (7.0-40); AST/SGOT 22 U/L (<34); CALCIUM LEVEL 9.1 MG/DL (8.3-10.6); CARBON DIOXIDE LEVEL 24 MMOL/L (20-31); CHLORIDE LEVEL 107 MMOL/L (98-107); CREATININE FOR GFR 0.74 MG/DL (0.70-1.30); GLOMERULAR FILTRATION RATE > 90.0 (>49); POTASSIUM SERUM 4.3 MMOL/L (3.5-5.1); SODIUM LEVEL 140 MMOL/L (136-145)
[2024-11-05 13:16] LABS: TOTAL 25(OH) VITAMIN D 22.2 NG/ML (20.0-100.0)
== END ==
LOC: M LAB 11:29
PROVIDERS: ATTEND Specialist
DX: D61.818 Other pancytopenia (principal); Z79.899 Other long term (current) drug therapy

== ENCOUNTER → 2024-11-06 | Outpatient (CLI) | payer MEDICARE, OTHER ==
[2024-11-06 12:19] LABS: APPEARANCE, URINE CLEAR (CLEAR); BACTERIA, URINE AUTO NEGATIVE (NEGATIVE); BILIRUBIN, URINE AUTO NEGATIVE (NEGATIVE); BLOOD, URINE BLOOD NEGATIVE (NEGATIVE); GLUCOSE, URINE (UA) AUTO NEGATIVE (NEGATIVE); KETONE, URINE AUTO NEGATIVE (NEGATIVE); LEUKOCYTE ESTERASE, URINE AUTO NEGATIVE (NEGATIVE); MUCUS, URINE SMALL (NEGATIVE); NITRITE, URINE AUTO NEGATIVE (NEGATIVE); PROTEIN, URINE AUTO NEGATIVE (NEGATIVE); RBC, URINE AUTO 0 /HPF (0-3); SPECIFIC GRAVITY URINE AUTO 1.015 (1.002-1.035); SQUAMOUS EPITHELIAL CELL UR AU 1 /HPF (0-6); UROBILINOGEN, URINE AUTO 0.2 mg/dL (0.0-2.0); WBC, URINE AUTO 0 /HPF (0-3)
[2024-11-06 12:32] LABS: CHOLESTEROL LEVEL 167.0 MG/DL (<200); CHOLESTEROL RISK RATIO 3.92 (<5); LDL CHOLESTEROL 89.1 MG/DL (<100); NON-HDL-C 124.5 MG/DL; PROSTATIC SPECIFIC AG MONITOR 0.17 NG/ML (< 4.00); TRIGLYCERIDES LEVEL 177.0 MG/DL (<150)
[2024-11-06 12:35] LABS: TOTAL 25(OH) VITAMIN D 23.4 NG/ML (20.0-100.0)
== END ==
LOC: M WUC 09:58
PROVIDERS: ATTEND Physician Assistant
DX: E78.5 Hyperlipidemia, unspecified (principal); E11.9 Type 2 diabetes mellitus without complications; E03.9 Hypothyroidism, unspecified; R35.1 Nocturia; E55.9 Vitamin D deficiency, unspecified; I10 Essential (primary) hypertension

== ENCOUNTER → 2024-11-06 | Outpatient (CLI) | payer MEDICARE, OTHER ==
[2024-11-06 12:32] LABS: ALT/SGPT 28 U/L (7.0-40); AST/SGOT 25 U/L (<34); CALCIUM LEVEL 8.9 MG/DL (8.3-10.6); CARBON DIOXIDE LEVEL 24 MMOL/L (20-31); CHLORIDE LEVEL 110 MMOL/L (98-107); CREATININE FOR GFR 0.74 MG/DL (0.70-1.30); GLOMERULAR FILTRATION RATE > 90.0 (>49); POTASSIUM SERUM 4.3 MMOL/L (3.5-5.1); SODIUM LEVEL 143 MMOL/L (136-145)
== END ==
LOC: M WUC 09:57
PROVIDERS: ATTEND Nurse Practitioner Family
DX: E11.9 Type 2 diabetes mellitus without complications (principal)

== ENCOUNTER → 2025-01-29 | Outpatient (CLI) | payer MEDICARE ==
[2025-01-29 12:27] LABS: BASO # 0.0 10^3/uL (0.0-0.2); BASO % 1.0 % (0.0-1.0); EOS # 0.2 10^3/uL (0.0-0.5); EOS % 3.9 % (0.0-3.0); LYMPH # 1.5 10^3/uL (1.5-5.0); LYMPH % 36.1 % (24.0-44.0); MONO # 0.4 10^3/uL (0.0-0.8); MONO % 10.0 % (2.0-8.0); NEUTROPHILS # 2.0 10^3/uL (1.5-8.5); NEUTROPHILS % 48.8 % (36.0-66.0); PLATELET COUNT, AUTOMATED 158 10^3/uL (150-450)
[2025-01-29 12:35] LABS: ALT/SGPT 34 U/L (7.0-40); AST/SGOT 29 U/L (<34); CALCIUM LEVEL 8.8 MG/DL (8.3-10.6); CARBON DIOXIDE LEVEL 25 MMOL/L (20-31); CHLORIDE LEVEL 109 MMOL/L (98-107); CHOLESTEROL LEVEL 182 MG/DL (<200); CHOLESTEROL RISK RATIO 3.76 (<5); CREATININE FOR GFR 0.75 MG/DL (0.70-1.30); GLOMERULAR FILTRATION RATE > 90.0 (>49); LDL CHOLESTEROL 105.6 MG/DL (<100); NON-HDL-C 133.6 MG/DL; POTASSIUM SERUM 4.5 MMOL/L (3.5-5.1); SODIUM LEVEL 144 MMOL/L (136-145); THYROXINE (T4) 4.7 UG/DL (4.5-10.9); TRIGLYCERIDES LEVEL 140 MG/DL (<150); VITAMIN B12 LEVEL 798 PG/ML (211-911)
[2025-01-29 12:36] LABS: LITHIUM LEVEL 0.74 MMOL/L (1.0-1.20); TOTAL 25(OH) VITAMIN D 19.9 NG/ML (20.0-100.0)
[2025-01-29 12:39] LABS: T UPTAKE 26.7 % (22.5-37.0)
[2025-01-29 12:48] LABS: ESTIMATED AVERAGE GLUCOSE 183.0 MG/DL (60-110)
== END ==
LOC: M WUC 09:01
PROVIDERS: ATTEND Nurse Practitioner Psychiatric/Mental Health
DX: F41.1 Generalized anxiety disorder (principal); E78.00 Pure hypercholesterolemia, unspecified